=== PATIENT | female | born 1950 | race African-American/Black ===

== ENCOUNTER 2020-05-07 17:17 | Emergency (ER) | payer MEDICARE ==
[2020-05-07] MEDS ORDERED: NORMAL SALINE 1000 ML 1,000 ML IV ONE (17:58)
--- NOTE | 2020-05-07 17:58 | ER Document Report ---
ED Medical Screen (RME) - General Chief Complaint: Nausea/Vomiting Stated Complaint: WEAKNESS Time Seen by Provider: 05/07/20 17:54 Mode of Arrival: Wheelchair Information source: Patient Notes: 69-year-old female presents to ED for fatigue times a couple months. The week she has been weak nauseated vomiting and not keeping food or fluid down for 3 to 4 days. She is her is here with her he states she was recently treated for right breast cancer with a lumpectomy chemo and radiation treatment that finished in December has had no treatment since then. He states she has not had any fevers. She is alert and oriented but she is hard of hearing. The patient was evaluated during the global Covid 19 pandemic, and that diagnosis was suspected/considered upon their initial presentation. Their evaluation, treatment and testing was consistent with current guidelines for patients who present with complaints or symptoms that may be related to Covid 19. I have greeted and performed a rapid initial assessment of this patient. A comprehensive ED assessment and evaluation of the patient, analysis of test results and completion of medical decision making process will be conducted by an additional ED providers. Physical Exam - Vital signs Vitals: Temp Pulse Resp BP Pulse Ox 99.6 F 86 16 115/82 100 05/07/20 17:21 05/07/20 17:21 05/07/20 17:21 05/07/20 17:21 05/07/20 17:21 Course - Vital Signs Vital signs: Temp Pulse Resp BP Pulse Ox 99.6 F 86 16 115/82 100 05/07/20 17:21 05/07/20 17:21 05/07/20 17:21 05/07/20 17:21 05/07/20 17:21
[2020-05-07] MEDS ORDERED: ONDANSETRON 4 MG TAB.RAPDIS PO ONE (17:59)
[2020-05-07 20:26] LABS: ABSOLUTE LYMPHOCYTES (AUTO) 0.8 10^3/uL (0.5-4.7); ABSOLUTE MONOCYTES (AUTO) 1.1 10^3/uL (0.1-1.4); ABSOLUTE NEUT (AUTO) 4.2 10^3/uL (1.7-8.2); BASOPHILS % (AUTO) 0.5 % (0-2); EOSINOPHILS % (AUTO) 0.5 % (0-6); HEMOGLOBIN 12.5 g/dL (12.0-15.5); LYMPHOCYTES % (AUTO) 13.3 % (13-45); MEAN CORPUSCULAR HGB CONC 34.7 g/dL (32.0-36.0); MEAN CORPUSCULAR VOLUME 89 fl (80-97); MONOCYTES % (AUTO) 17.5 % (3-13); PLATELET COUNT 228 10^3/uL (150-450); RED BLOOD COUNT 4.03 10^6/uL (3.72-5.28); RED CELL DISTRIBUTION WIDTH 14.3 % (11.5-14.0); SEGMENTED NEUTROPHILS % (AUTO) 68.2 % (42-78); TOTAL CELLS COUNTED % (AUTO) 100 %; WHITE BLOOD COUNT 6.1 10^3/uL (4.0-10.5)
[2020-05-07] MEDS ORDERED: PROMETHAZINE HCL INJ 25 MG/1 ML VIAL IV ONE (20:40)
[2020-05-07] MEDS ORDERED: FAMOTIDINE INJ/PF 20 MG/2 ML SDV IV ONE (20:41)
[2020-05-07 20:45] LABS: ALBUMIN 3.2 g/dL (3.5-5.0); ALKALINE PHOSPHATASE 89 U/L (38-126); ANION GAP 6 (5-19); ASPARTATE AMINO TRANSFERASE 33 U/L (14-36); BILIRUBIN,TOTAL 0.6 mg/dL (0.2-1.3); BLOOD UREA NITROGEN 11 mg/dL (7-20); CALCIUM 8.7 mg/dL (8.4-10.2); CARBON DIOXIDE 25 mmol/L (22-30); CHLORIDE 106 mmol/L (98-107); GLUCOSE 100 mg/dL (75-110); POTASSIUM 4.2 mmol/L (3.6-5.0); TOTAL PROTEIN 6.4 g/dL (6.3-8.2)
[2020-05-07 21:52] LABS: APPEARANCE,URINE SLIGHTLY-CLOUDY; BILIRUBIN,URINE NEGATIVE (NEGATIVE); COLOR,URINE DARK YELLOW; GLUCOSE, URINE NEGATIVE (NEGATIVE); KETONES,URINE TRACE mg/dL (NEGATIVE); LEUKOCYTE ESTERASE,URINE SMALL (NEGATIVE); NITRITE,URINE POSITIVE (NEGATIVE); PROTEIN,URINE 30 mg/dL (NEGATIVE); URINE SPECIFIC GRAVITY 1.019
--- NOTE | 2020-05-07 23:13 | EKG REPORT ---
SEVERITY:- NORMAL ECG - SINUS RHYTHM : Confirmed by: Tiburcio Tillman MD 07-May-2020 23:13:13
[2020-05-07] MEDS ORDERED: CEFTRIAXONE 1 GM/D5W RTU 1 GM/50 ML RTUPB IV ONE (23:36)
--- NOTE | 2020-05-07 23:37 | ER Document Report ---
ED General - General Chief Complaint: General Weakness Stated Complaint: WEAKNESS Time Seen by Provider: 05/07/20 17:54 Mode of Arrival: Wheelchair - HPI Notes: 69-year-old female presents with nausea and vomiting. Patient states that she has had issues with nausea and vomiting ever since receiving chemotherapy, her last chemo treatment was in December. She has had episodes of epigastric pain. She states that she underwent recent evaluation with a CT scan, she is to have a scope next week at [place], states that she will receive CT results at that time. She states that she feels dehydrated. She has not really had much food for the past 4 days. She has had chills, but no fever. She has been taking Pepto- Bismol for her symptoms. Also complains of generalized fatigue. - Related Data Allergies/Adverse Reactions: garlic Allergy (Verified 05/07/20 18:01) Past Medical History - General Information source: Patient - Social History Smoking Status: Never Smoker Frequency of alcohol use: None Drug Abuse: None Family History: Reviewed & Not Pertinent Endocrine Medical History: Reports: Hx Diabetes Mellitus Type 2 Past Surgical History: Reports: Hx Breast Surgery Review of Systems - Review of Systems Constitutional: Chills EENT: No symptoms reported Cardiovascular: No symptoms reported Respiratory: No symptoms reported Gastrointestinal: Nausea, Vomiting Genitourinary: No symptoms reported Female Genitourinary: No symptoms reported Musculoskeletal: No symptoms reported Skin: No symptoms reported Hematologic/Lymphatic: No symptoms reported Neurological/Psychological: Weakness - Generalized Physical Exam - Vital signs Vitals: Temp Pulse Resp BP Pulse Ox 99.6 F 86 16 115/82 100 05/07/20 17:21 05/07/20 17:21 05/07/20 17:21 05/07/20 17:21 05/07/20 17:21 Interpretation: No: Febrile - General General appearance: Appears well In distress: None - HEENT Head: Normocephalic, Atraumatic Eyes: No: Scleral icterus Extraocular movements intact: Yes Pupils: PERRL - Respiratory Breath sounds: Normal - Cardiovascular Rhythm: Regular Heart sounds: Normal auscultation Normal capillary refill: Yes - Abdominal Inspection: Normal Distension: No distension Bowel sounds: Normal Tenderness: Tender - Mild epigastric - Extremities General lower extremity: No: Edema - Neurological Neuro grossly intact: Yes Cognition: Normal Orientation: AAOx4 Motor strength normal: LUE, RUE, LLE, RLE Sensory: Normal - Psychological Associated symptoms: Normal affect - Skin Skin Temperature: Warm Course - Re-evaluation Re-evalutation: 69-year-old female with nausea, vomiting and decreased p.o. intake x4 days. Apparently this is happened to her before. She is nontoxic-appearing on exam, afebrile. She does have mild epigastric tenderness. I offered her repeat CT scan, she declined at this time. She would like to focus on symptomatic control. Symptoms possibly attributable to viral illness versus gastritis versus infection. Will treat symptomatically and reassess. 05/07/20 23:37 No leukocytosis or left shift. No acute anemia. Electrolytes within normal limits. LFTs are okay, there is no elevation of lipase. Urine appears to have evidence of a urinary tract infection, sent for culture, 1 g of Rocephin ordered for empiric coverage. 05/07/20 23:42 Patient is feeling better, she has tolerated p.o. Discussed with her UTI treatment. She has follow-up with [facility] next week for scope. Return precautions given, stable at time of discharge. - Vital Signs Vital signs: Temp Pulse Resp BP Pulse Ox 97.7 F 87 18 119/61 95 05/08/20 00:32 05/08/20 00:32 05/08/20 00:32 05/08/20 00:32 05/08/20 00:32 - Laboratory Result Diagrams: 05/07/20 20:13 05/07/20 20:13 Laboratory results interpreted by me: 05/07/20 05/07/20 05/07/20 20:13 20:13 21:35 RDW 14.3 H Vermilion % (Auto) 17.5 H Sodium 136.7 L ALT 39 H Albumin 3.2 L Urine Protein 30 H Urine Ketones TRACE H Urine Blood SMALL H Urine Nitrite POSITIVE H Urine Urobilinogen 4.0 H Ur Leukocyte Esterase SMALL H - EKG Interpretation by Me Additional EKG results interpreted by me: 05/09/20 03:24 EKG is interpreted by me. Normal sinus rhythm with rate 91. No ST elevations. QTc within normal limits. Discharge - Discharge Clinical Impression: Bacterial UTI Condition: Stable Disposition: HOME, SELF-CARE Instructions: Urinary Tract Infection ([facility]) Additional Instructions: Please begin course of antibiotic. Please follow-up with [facility] as planned peer return to the ED for any concerning or worsening symptoms. You may use Phenergan for nausea. Prescriptions: Cephalexin Monohydrate [Keflex 500 mg Capsule] 500 mg PO BID 7 Days #14 capsule Promethazine HCl [Phenergan 25 mg Tablet] 1 - 2 tab PO Q6H PRN #15 tablet PRN Reason:
[2020-05-08 00:33] VITALS: BP 119/61
== END 2020-05-08 00:47 | disposition home or self-care (01) ==
LOC: ER 17:17
DX: N39.0 Urinary tract infection, site not specified (principal); B96.89 Other specified bacterial agents as the cause of diseases classified elsewhere; R11.2 Nausea with vomiting, unspecified; R10.13 Epigastric pain; R53.83 Other fatigue; R68.83 Chills (without fever); R53.1 Weakness; R10.816 Epigastric abdominal tenderness; E11.9 Type 2 diabetes mellitus without complications; Z92.21 Personal history of antineoplastic chemotherapy; Z91.018 Allergy to other foods; Z20.828 Contact with and (suspected) exposure to other viral communicable diseases
CPT/HCPCS: 93005; 99284; 96361; 96375; 96365; 36415; 87086; 83690; 85025; 87088; 80053; 81001; 87186; 93010; U0003; A9270; J2550; J7030; S0028; J0696; C9803; 87635; S0119